=== PATIENT | male | born 1990 | race African-American/Black ===

== ENCOUNTER 2022-06-18 10:27 | Emergency (ER) | payer MEDICAID, OTHER ==
[~2022-06-18] VITALS: Ht 167.6 cm; Wt 75.0 kg
[2022-06-18] MEDS ORDERED: CEFAZOLIN 1000MG PREMIX 50 ML IV ONE (11:30)
[2022-06-18] MEDS ORDERED: LIDOCAINE HCL/PF 1% 10 MG/ML 5ML VIAL INFIL ONE (11:45)
[2022-06-18] MEDS ORDERED: KETOROLAC 30MG/ML VIAL IV ONE (11:45)
[2022-06-18] MEDS ORDERED: BACITRACIN ZINC OINT UDPKT TOP ONE ×2 (11:45→13:15)
[2022-06-18 11:46] VITALS: BP 132/82
[2022-06-18] MEDS: TETANUS, DIPHTHERIA, PERTUSSIS VAC/PF 0.5ML (>10YR OLD) IM ONE ×2 (11:55→12:15)
[2022-06-18] MEDS ORDERED: IBUP-2029 MT (12:53)
== END 2022-06-18 13:28 | disposition home or self-care (01) ==
LOC: ER 10:27
DX: S61.111A Laceration without foreign body of right thumb with damage to nail, initial encounter (principal); W26.0XXA Contact with knife, initial encounter; Y93.89 Activity, other specified; Y92.018 Other place in single-family (private) house as the place of occurrence of the external cause
CPT/HCPCS: 12002; 73140; 90715; 96365; 96375; 99284; J0690; J1885; J3490

== ENCOUNTER 2022-06-21 14:28 | Emergency (ER) | payer OTHER ==
[~2022-06-21] VITALS: Ht 172.7 cm; Wt 109.0 kg
[~2022-06-21 14:28] MED LIST: IBUP-2029 MT
[2022-06-21 14:57] VITALS: BP 125/82
[2022-06-21] MEDS ORDERED: GAUZ1BAN TP (16:11)
== END 2022-06-21 16:42 | disposition home or self-care (01) ==
LOC: ER 15:00
DX: S61.011D Laceration without foreign body of right thumb without damage to nail, subsequent encounter (principal); X58.XXXD Exposure to other specified factors, subsequent encounter
CPT/HCPCS: 99281; 99282

== ENCOUNTER 2022-07-06 13:38 | Emergency (ER) | payer OTHER ==
[~2022-07-06] VITALS: Ht 172.7 cm; Wt 111.0 kg
[~2022-07-06 13:38] MED LIST changes: +GAUZ1BAN TP
[2022-07-06 13:45] VITALS: BP 121/79
== END 2022-07-06 15:35 | disposition home or self-care (01) ==
LOC: ER 13:38
DX: Z48.02 Encounter for removal of sutures (principal)
CPT/HCPCS: 99281

== ENCOUNTER 2022-08-05 12:06 | Emergency (ER) | payer OTHER ==
[~2022-08-05] VITALS: Ht 172.7 cm; Wt 113.0 kg
[2022-08-05 12:28] VITALS: BP 143/79
[2022-08-05] MEDS ORDERED: AMOX1TAB16 MT (14:53)
[2022-08-05] MEDS ORDERED: TETANUS AND DIPHTHERIA TOX/PF 0.5ML SYR (ADULT) IM ONE (15:00)
[2022-08-05] MEDS ORDERED: TETANUS, DIPHTHERIA, PERTUSSIS VAC/PF 0.5ML (>10YR OLD) IM ONE (15:15)
== END 2022-08-05 15:24 | disposition home or self-care (01) ==
LOC: ER 12:06
DX: S41.152A Open bite of left upper arm, initial encounter (principal); Y04.1XXA Assault by human bite, initial encounter; Y93.89 Activity, other specified; Y92.9 Unspecified place or not applicable
CPT/HCPCS: 90471; 90714; 90715; 99283

== ENCOUNTER 2023-07-13 17:51 | Emergency (ER) | payer MEDICAID, OTHER ==
[~2023-07-13] VITALS: Ht 167.6 cm; Wt 97.0 kg
[~2023-07-13 17:51] MED LIST changes: +AMOX1TAB16 MT
[2023-07-13 18:05] VITALS: O2SAT 98
[2023-07-13] MEDS ORDERED: IBUPROFEN 600MG TABLET PO ONE (18:45)
[2023-07-13] MEDS ORDERED: IBUPROFEN 600MG TABLET PO NR (20:35)
[2023-07-13] MEDS ORDERED: IBUP-2029 MT (20:36)
[2023-07-13 21:40] VITALS: BP 121/78; PULSE 67; RESP 20; TEMP 98.1
== END 2023-07-13 21:40 | disposition home or self-care (01) ==
LOC: ER 19:37
DX: S86.012A Strain of left Achilles tendon, initial encounter (principal); Y93.67 Activity, basketball; Y92.89 Other specified places as the place of occurrence of the external cause; Y99.8 Other external cause status
CPT/HCPCS: 93971; 73610; 29515; 99284; Z7610